=== PATIENT | female | born 1995 | race African-American/Black ===

== ENCOUNTER 2020-05-28 21:58 | Emergency (ER) | payer SELFPAY ==
[~2020-05-28] VITALS: Ht 165.1 cm; Wt 61.0 kg
[2020-05-28] MEDS ORDERED: ONDANSETRON 4MG ODT PO STA (22:14)
[2020-05-29 06:52] VITALS: BP 128/72
== END 2020-05-29 06:55 | disposition home or self-care (01) ==
LOC: ER 21:58
DX: T40.7X1A Poisoning by cannabis (derivatives), accidental (unintentional), initial encounter (principal); Y92.9 Unspecified place or not applicable; G93.40 Encephalopathy, unspecified
CPT/HCPCS: 99285; Q0162